=== PATIENT | female | born 1995 | race Caucasian/White ===

== ENCOUNTER 2017-11-01 13:06 | Emergency (ER) | payer BC ==
[2017-11-01] MEDS ORDERED: LORAZEPAM 2 MG/ML VIAL IV ONE (13:14)
--- NOTE | 2017-11-01 13:29 | Emergency Department Record ---
History of Present Illness <Leeanna Izquierdo - Last Filed: 11/01/17 18:37> - General Source: Patient, Family Mode of Arrival: Wheelchair Limitations: Altered mental status - History of Present Illness Initial Comments: The patient is here due to developing Pseudo-seizures about an hour ago. She has a recent hx of anxiety and was admitted to [facility] for pseudo- seizures for a couple of days. She was placed on Keppra and Klonopin. Recently the patient had been weaning herself off the Klonopin because she did not like the way it made her feel. Now today she was staying with a friend and got up feeling numb all over. About an hour ago she began to exhibit jerking episodes and was "passing out" intermittently per her friend. There was no trauma, fall or injury. The patient also never bit her tongue or was incontinent. When she presented to the ER she clearly was exhibiting breath holding spells and intermittent jerking but was awake the entire time. Presently she is more calm after Ativan. MD Complaint: Feel seizure coming on Onset/Timin -: Hour(s) Description of Episode: Other <Elijah Knight - Last Filed: 11/02/17 07:27> - General Chief Complaint: Seizures Stated Complaint: SIZURE Time Seen by Provider: 11/01/17 13:11 - Related Data Home Medications Medication Instructions Recorded Confirmed Last Taken Budesonide/Formoterol Fumarate 1 spray INH DAILY 11/01/17 11/01/17 Unknown [Symbicort 80-4.5 Mcg Inhaler] Cetirizine HCl [Zyrtec] 10 mg PO DAILY 11/01/17 11/01/17 Unknown Clonazepam [Klonopin] 0.5 mg PO DAILY 11/01/17 11/01/17 Unknown Levetiracetam [Keppra] 250 mg PO BID 11/01/17 11/01/17 Unknown Venlafaxine HCl [Effexor] 75 mg PO BID 11/01/17 11/01/17 Unknown Allergies Allergy/AdvReac Type Severity Reaction Status Date / Time acetaminophen [From [place]] Allergy PT UNSURE Verified 11/01/17 13:25 OF REACTION hydrocodone [From [place]] Allergy PT UNSURE Verified 11/01/17 13:25 OF REACTION Review of Systems Constitutional: Denies: Chills, Fever Eyes: Denies: Eye discharge ENT: Denies: Congestion Respiratory: Denies: Cough, Dyspnea <Elijah Knight - Last Filed: 11/02/17 07:27> Physical Exam - General General Appearance: Alert, Mild distress (due to anxiety.) - Head Head exam: Atraumatic, Normocephalic - Eye Eye exam: Normal appearance, PERRL, EOMI - ENT Throat exam: Normal inspection. negative: Tonsillar erythema, Tonsillar exudate - Neck Neck exam: Normal inspection, Full ROM. negative: Tenderness - Respiratory Respiratory exam: Normal lung sounds bilaterally. negative: Respiratory distress - Cardiovascular Cardiovascular Exam: Regular rate, Normal rhythm, Normal heart sounds - GI/Abdominal GI/Abdominal exam: Soft, Normal bowel sounds. negative: Tenderness - Extremities Extremities exam: Normal inspection, Full ROM, Normal capillary refill. negative: Tenderness - Back Back exam: Reports: Normal inspection - Neurological Neurological exam: Abnormal gait, Alert. negative: Motor sensory deficit - Psychiatric Psychiatric exam: Agitated, Anxious (The patient is very anxious and agitated and is exhibiting signs of pseudoseizures. She is shaking uncontrollably for a few seconds and is awake throughout the episodes. She will then relax when asked.) <Elijah Knight - Last Filed: 11/02/17 07:27> Course Vital Signs 11/01/17 11/01/17 11/01/17 13:15 13:40 14:05 Temperature 97.5 F L 97.5 F L Pulse Rate [ 115 H 99 H 64 Pulse Ox Probe] Respiratory 34 H 17 17 Rate Blood Pressure 114/86 105/70 112/78 [Right Arm] Pulse Ox 99 100 11/01/17 11/01/17 11/01/17 15:05 16:05 16:36 Temperature 98.2 F 98.2 F Pulse Rate [ 74 76 68 Pulse Ox Probe] Respiratory 16 16 16 Rate Blood Pressure 111/67 112/78 106/56 [Right Arm] Pulse Ox 99 100 100 11/01/17 18:26 Temperature 98.2 F Pulse Rate [ 68 Pulse Ox Probe] Respiratory 15 Rate Blood Pressure 121/81 [Right Arm] Pulse Ox 98 - Reevaluation(s) Reevaluation #5: 11/01/17 18:38 pt has been stable. bed obtained from [facility] <Leeanna Izquierdo - Last Filed: 11/01/17 18:37> Vital Signs 11/01/17 13:15 Pulse Rate [ 115 H Pulse Ox Probe] Respiratory 34 H Rate Blood Pressure 114/86 [Right Arm] Pulse Ox 99 - Reevaluation(s) Reevaluation #1: The patient is doing a lot better at this time. She is resting comfortably and very calm with normal vital signs and no further anxiety. 11/01/17 14:04 Reevaluation #2: The patient is doing much better now and is resting comfortably with normal vital signs. She now states she has been suicidal for the last 3 days. She does have a psychiatrist and does have an appointment in 4 days with him and that is who prescribes her medicines. The patient also states she recently googled ways to kill herself with her computer. 11/01/17 15:01 Reevaluation #3: 2nd EKG; NSR at 68, neg ST-T changes. Normal QT and QRS. I did ask the patient about the Acetaminophen level being 11 and the patient did state she took one Tylenol at 10:00 am which does correlate with the level. 11/01/17 15:25 11/01/17 15:57 Reevaluation #4: The patient is doing much better at this time. We are waiting on Psych. placement due to the patient now being on an MOLINA and CERT. Her care will be turned over to Dr. Izquierdo at 16:00 due to shift change. 11/01/17 15:52 <Elijah Knight - Last Filed: 11/02/17 07:27> Medical Decision Making - Lab Data Result diagrams: 11/01/17 13:05 11/01/17 13:05 Lab Results 11/01/17 11/01/17 11/01/17 Range/Units 13:05 13:05 13:05 WBC 4.9 (4.2-12.2) K/uL RBC 3.93 (3.80-5.40) M/uL Hgb 12.2 (11.6-16.0) gm/dl Hct 36.6 (35.0-47.0) % MCV 93.1 (81-97) fl MCH 31.0 (27-33) pg MCHC 33.3 (32-36) g/dl RDW 12.6 (11.5-14.5) % Plt Count 273 (130-400) K/uL MPV 10.4 (7.4-10.4) fl Gran % 49.5 (47-80) % Lymphocytes % 35.4 (16-45) % Monocytes % 9.8 H (0-9) % Eosinophils % 4.5 (0-6) % Basophils % 0.8 (0-6) % PT 10.3 (9.5-12.1) SECONDS INR 1.0 APTT 27.3 (24.5-39.1) SECONDS Sodium 137 (136-145) mmol/L Potassium 4.1 (3.4-4.5) mmol/L Chloride 101 (98-107) mmol/L Carbon Dioxide 20.0 L (22-29) mmol/L Anion Gap 16.0 (7-16) BUN 12 (6-20) mg/dL Creatinine 0.6 (0.5-0.9) mg/dL Estimated GFR > 60 mL/min Random Glucose 101 (74-109) mg/dL Calcium 9.2 (8.6-10.0) mg/dL Total Bilirubin 0.30 (0.2-1.0) mg/dL AST 16 (10.0-35.0) U/L ALT 18 (<33) U/L Alkaline Phosphatase 23 L (35-104) U/L Total Protein 7.2 (6.6-8.7) g/dL Albumin 4.5 (4.0-5.0) g/dL Globulin 2.7 (1.4-4.8) gm/dL Albumin/Globulin Ratio 1.7 (1.1-1.8) TSH 1.02 (0.270-4.20) uIU/mL Urine HCG, Qual (NEGATIVE) Salicylates (2.8-20) mg/dL Urine Opiates Screen Ur Oxycodone Screen Urine Methadone Screen Ur Propoxyphene Screen Acetaminophen (10.0-30.0) ug/mL Ur Barbituates Screen Ur Tricyclics Screen Ur Phencyclidine Scrn Ur Amphetamine Screen U Methamphetamines Scrn U Benzodiazepines Scrn Urine Cocaine Screen Urine Cannabis Screen 11/01/17 11/01/17 11/01/17 Range/Units 13:05 13:40 13:40 WBC (4.2-12.2) K/uL RBC (3.80-5.40) M/uL Hgb (11.6-16.0) gm/dl Hct (35.0-47.0) % MCV (81-97) fl MCH (27-33) pg MCHC (32-36) g/dl RDW (11.5-14.5) % Plt Count (130-400) K/uL MPV (7.4-10.4) fl Gran % (47-80) % Lymphocytes % (16-45) % Monocytes % (0-9) % Eosinophils % (0-6) % Basophils % (0-6) % PT (9.5-12.1) SECONDS INR APTT (24.5-39.1) SECONDS Sodium (136-145) mmol/L Potassium (3.4-4.5) mmol/L Chloride (98-107) mmol/L Carbon Dioxide (22-29) mmol/L Anion Gap (7-16) BUN (6-20) mg/dL Creatinine (0.5-0.9) mg/dL Estimated GFR mL/min Random Glucose (74-109) mg/dL Calcium (8.6-10.0) mg/dL Total Bilirubin (0.2-1.0) mg/dL AST (10.0-35.0) U/L ALT (<33) U/L Alkaline Phosphatase (35-104) U/L Total Protein (6.6-8.7) g/dL Albumin (4.0-5.0) g/dL Globulin (1.4-4.8) gm/dL Albumin/Globulin Ratio (1.1-1.8) TSH (0.270-4.20) uIU/mL Urine HCG, Qual Negative (NEGATIVE) Salicylates < 0.3 L (2.8-20) mg/dL Urine Opiates Screen Not detected Ur Oxycodone Screen Not detected Urine Methadone Screen Not detected Ur Propoxyphene Screen Not detected Acetaminophen 11.9 (10.0-30.0) ug/mL Ur Barbituates Screen Not detected Ur Tricyclics Screen Not detected Ur Phencyclidine Scrn Not detected Ur Amphetamine Screen Not detected U Methamphetamines Scrn Not detected U Benzodiazepines Scrn Detected Urine Cocaine Screen Not detected Urine Cannabis Screen Detected <Leeanna Izquierdo - Last Filed: 11/01/17 18:37> - Data Complexity MDM Data: Labs Ordered and/or Reviewed, EKG Ordered and/or Reviewed - Lab Data Result diagrams: 11/01/17 13:05 11/01/17 13:05 - EKG Data -: EKG Interpreted by Me EKG: No Acute Changes (Sinus Tach at 111. O/W neg.) <Elijah Knight - Last Filed: 11/02/17 07:27> Disposition Disposition: Transfer Transfer To: [facility] Reason For Transfer: psych Accepting Physician: dr isaacs Time Discussed w/Accepting Physician: 18:39 <Leeanna Izquierdo - Last Filed: 11/01/17 18:37> Disposition: Transfer Reason For Transfer: Psych. Time Discussed w/Accepting Physician: 15:54 Time of Disposition: 15:54 <Elijah Knight - Last Filed: 11/02/17 07:27> Clinical Impression: Anxiety and depression Disposition: Acute Care Hospital Transfer Condition: (2) Stable Forms: Patient Portal Access Quality - Quality Measures Quality Measures: N/A - Blood Pressure Screening Does Patient Have Any of the Following: No Blood Pressure Classification: Pre-Hypertensive BP Reading Systolic Measurement: 121 Diastolic Measurement: 81 Screening for High Blood Pressure: < Pre-Hypertensive BP, F/U Documented > [ G8950] Pre-Hypertensive Follow-up Interventions: Follow-up with rescreen every year. <Leeanna Izquierdo - Last Filed: 11/01/17 18:37> - Quality Measures Quality Measures: N/A - Blood Pressure Screening View Details: Yes Does Patient Have Any of the Following: No Blood Pressure Classification: Pre-Hypertensive BP Reading Systolic Measurement: 121 Diastolic Measurement: 81 Screening for High Blood Pressure: < Pre-Hypertensive BP, F/U Documented > [ G8950] Pre-Hypertensive Follow-up Interventions: Referral to alternative/primary care provider. <Elijah Knight - Last Filed: 11/02/17 07:27>
[2017-11-01 13:31] LABS: BASO % 0.8 % (0-6); EOS % 4.5 % (0-6); GRAN % 49.5 % (47-80); HEMATOCRIT 36.6 % (35.0-47.0); HEMOGLOBIN 12.2 gm/dl (11.6-16.0); LYMPH % 35.4 % (16-45); MEAN CELL VOLUME 93.1 fl (81-97); MEAN CORPUSCULAR HGB CONC 33.3 g/dl (32-36); MEAN PLATELET VOLUME 10.4 fl (7.4-10.4); MONO % 9.8 % (0-9); PLATELET COUNT 273 K/uL (130-400); RED BLOOD COUNT 3.93 M/uL (3.80-5.40); RED CELL DISTRIBUTION WIDTH 12.6 % (11.5-14.5); WHITE BLOOD COUNT W/O DIFF 4.9 K/uL (4.2-12.2)
[2017-11-01 13:44] LABS: PARTIAL THROMBOPLASTIN TIME 27.3 SECONDS (24.5-39.1); PROTHROMBIN TIME (PATIENT) 10.3 SECONDS (9.5-12.1)
[2017-11-01 13:45] LABS: BLOOD UREA NITROGEN 12 mg/dL (6-20); CREATININE 0.6 mg/dL (0.5-0.9); EST GLOMERULAR FILTRATION RATE > 60 mL/min
[2017-11-01 13:46] LABS: TOTAL PROTEIN 7.2 g/dL (6.6-8.7)
[2017-11-01 13:48] LABS: GLUCOSE,RANDOM 101 mg/dL (74-109)
[2017-11-01 13:50] LABS: ALB/GLOB RATIO 1.7 (1.1-1.8); ALBUMIN 4.5 g/dL (4.0-5.0); ALKALINE PHOSPHATASE 23 U/L (35-104); ALT/SGPT 18 U/L (<33); AST/SGOT 16 U/L (10.0-35.0)
[2017-11-01 13:56] LABS: AMPHETAMINE SCREEN URINE NOT DETECTED; BARBITURATE SCREEN URINE NOT DETECTED; BENZODIAZEPINE SCREEN URINE DETECTED; COCAINE SCREEN URINE NOT DETECTED; METHADONE SCREEN URINE NOT DETECTED; METHAMPHETAMINE SCREEN NOT DETECTED; OPIATE SCREEN URINE NOT DETECTED; OXYCODONE SCREEN URINE NOT DETECTED; PHENCYCLIDINE SCREEN URINE NOT DETECTED; PROPOXYPHENE SCREEN URINE NOT DETECTED; THC SCREEN URINE DETECTED; TRICYCLIC ANTIDEPRESSANT SCRN NOT DETECTED
[2017-11-01 14:01] LABS: THYROID STIMULATING HORMONE 1.02 uIU/mL (0.270-4.20)
[2017-11-01 14:10] LABS: ACETAMINOPHEN 11.9 ug/mL (10.0-30.0); SALICYLATE < 0.3 mg/dL (2.8-20)
== END 2017-11-01 19:30 | disposition short-term general hospital (02) ==
LOC: ER 13:06
DX: R45.851 Suicidal ideations (principal); F41.8 Other specified anxiety disorders; F44.5 Conversion disorder with seizures or convulsions; F17.210 Nicotine dependence, cigarettes, uncomplicated
CPT/HCPCS: 99285 ×2; 96374; 85025; 85730; 85610; 80053; 84443; 81025; 80305; 93005; 93010; G0480 ×2; J2060; 80329